=== PATIENT | male | born 1990 | race Caucasian/White ===

== ENCOUNTER 2021-02-14 11:51 | Emergency (ER) | payer OTHER ==
[~2021-02-14] VITALS: Ht 175.3 cm; Wt 88.6 kg
[2021-02-14 11:52] VITALS: BP 131/79
== END 2021-02-14 13:02 | disposition home or self-care (01) ==
LOC: M ED 11:51
DX: R21 Rash and other nonspecific skin eruption (principal)

== ENCOUNTER 2021-06-21 20:22 | Emergency (ER) | payer OTHER ==
[~2021-06-21] VITALS: Ht 172.7 cm; Wt 91.7 kg
--- NOTE | 2021-06-21 21:25 | REPVR ---
PROCEDURE INFORMATION: Exam: CT Head Without Contrast Exam date and time: 06/21/2021 8:32 PM Age: 31 years old Clinical indication: Injury or trauma; Fall; Concussion/head injury; Additional info: Intoxicated/injury TECHNIQUE: Imaging protocol: Computed tomography of the head without contrast. Radiation optimization: All CT scans at this facility use at least one of these dose optimization techniques: automated exposure control; mA and/or kV adjustment per patient size (includes targeted exams where dose is matched to clinical indication); or iterative reconstruction. COMPARISON: No relevant prior studies available. FINDINGS: Brain: There is a very small amount of subdural blood along the tentorium and also along the falx at the vertex. The healy-white differentiation appears preserved. Cerebral ventricles: Normal appearing ventricles. Paranasal sinuses: Clear paranasal sinuses. Mastoid air cells: Clear mastoid air cells. Bones/joints: There is no evidence of fracture. Soft tissues: The patient has soft tissue swelling and a laceration of the scalp on the right. IMPRESSION: 1. Right scalp laceration. 2. Suspect small amount of subdural blood along the tentorium and along the falx at the vertex. Electronically signed by: Haris Gonzalez On 06/21/2021 21:24:58 PM
[2021-06-21] MEDS ORDERED: LIDOCAINE W/EPINEPHRINE 1% 20ML VIAL SC ONE (22:05)
--- NOTE | 2021-06-21 22:08 | REPVR ---
PROCEDURE INFORMATION: Exam: CT Cervical Spine Without Contrast Exam date and time: 06/21/2021 9:40 PM Age: 31 years old Clinical indication: Injury or trauma; Fall; Blunt trauma TECHNIQUE: Imaging protocol: Computed tomography images of the cervical spine without contrast. Radiation optimization: All CT scans at this facility use at least one of these dose optimization techniques: automated exposure control; mA and/or kV adjustment per patient size (includes targeted exams where dose is matched to clinical indication); or iterative reconstruction. COMPARISON: CT Head without contrast 06/21/2021 8:29 PM FINDINGS: Vertebrae: The cervical vertebra and facet joints appear in alignment. There is no evidence of fracture. The dens appears intact in the lateral masses of C1 appear symmetric. Lungs: The apical portions of the lung appear clear. IMPRESSION: No evidence of fracture. Electronically signed by: Haris Gonzalez On 06/21/2021 22:08:25 PM
[2021-06-21 22:16] LABS: BASO % 0.5 % (0.0-1.0); EOS # 0.1 10^3/uL (0.0-0.5); HEMATOCRIT 43.8 % (42.0-52.0); HEMOGLOBIN 14.6 g/dl (13.5-17.5); LYMPH # 1.8 10^3/uL (1.5-5.0); LYMPH % 21.6 % (24.0-44.0); MEAN CORPUSCULAR HEMOGLOBIN 29.9 pg (27.0-33.0); MEAN CORPUSCULAR HGB CONC 33.3 g/dl (32.0-36.5); MEAN CORPUSCULAR VOLUME 89.6 fl (80.0-96.0); MONO # 0.6 10^3/uL (0.0-0.8); MONO % 7.2 % (2.0-8.0); NEUTROPHILS # 5.8 10^3/uL (1.5-8.5); NEUTROPHILS % 69.3 % (36.0-66.0); PLATELET COUNT, AUTOMATED 246 10^3/uL (150-450); RED BLOOD COUNT 4.89 10^6/uL (4.30-6.10); WHITE BLOOD COUNT 8.3 10^3/uL (4.0-10.0)
[2021-06-21 22:29] LABS: INR 0.83; PROTHROMBIN TIME 11.8 SECONDS (12.7-14.5)
[2021-06-21 22:36] VITALS: BP 159/86
[2021-06-21 22:40] LABS: RSV AMPLIFICATION NEGATIVE (NEGATIVE)
[2021-06-21 23:17] LABS: ALBUMIN 3.8 GM/DL (3.2-5.2); ALT/SGPT 31 U/L (12-78); BILIRUBIN,TOTAL 0.7 MG/DL (0.2-1.0); BLOOD UREA NITROGEN 13 MG/DL (7-18); CALCIUM LEVEL 8.7 MG/DL (8.5-10.1); CARBON DIOXIDE LEVEL 26 MEQ/L (21-32); CHLORIDE LEVEL 112 MEQ/L (98-107); CREATININE FOR GFR 0.96 MG/DL (0.70-1.30); ETHYL ALCOHOL (ETHANOL) 0.261 % (0.000-0.010); GLOMERULAR FILTRATION RATE > 60.0 (>60); GLUCOSE, FASTING 113 MG/DL (70-100); POTASSIUM SERUM 4.3 MEQ/L (3.5-5.1); SODIUM LEVEL 144 MEQ/L (136-145); TOTAL PROTEIN 6.9 GM/DL (6.4-8.2)
== END 2021-06-21 22:40 | disposition short-term general hospital (02) ==
LOC: M ED 20:22
DX: S06.5X0A Traumatic subdural hemorrhage without loss of consciousness, initial encounter (principal); S01.81XA Laceration without foreign body of other part of head, initial encounter; W07.XXXA Fall from chair, initial encounter; Y92.099 Unspecified place in other non-institutional residence as the place of occurrence of the external cause; Y93.9 Activity, unspecified; Y99.9 Unspecified external cause status; F10.10 Alcohol abuse, uncomplicated

== ENCOUNTER → 2021-07-19 | Outpatient (CLI) | payer OTHER ==
--- NOTE | 2021-07-19 10:37 | REPVR ---
PROCEDURE INFORMATION: Exam: MR Head Without Contrast Exam date and time: 07/19/2021 8:55 AM Age: 31 years old Clinical indication: Injury or trauma; Bleeding/hemorrhage; Injury date: 1 month ago; Injury details: 07/13 presented with pupillary asymmetry l>r slightly with sluggish reaction and PT states headaches since fall; Prior surgery; Surgery date: <1 month; Patient HX: Follow up CT head [facility]; Additional info: S/P tbi sm subdural hemotoma TECHNIQUE: Imaging protocol: MR of the head without contrast. COMPARISON: CT Head without contrast 06/21/2021 8:29 PM FINDINGS: Brain: 4 mm foci of signal drop on gradient echo images in bilateral inferior frontal lobes without any associated FLAIR signal abnormality. Findings may represent hemosiderin deposition, age indeterminate versus calcium. Small foci of signal drop on gradient echo images in the inferior bilateral frontal lobes. Findings may represent small contusions versus a ball subarachnoid hemorrhage. Additionally there is signal drop on gradient echo images in the. No evidence of restricted diffusion to suggest an acute infarct. No mass, midline shift, or mass effect. Cerebral ventricles: Normal. No ventriculomegaly. Bones/joints: Unremarkable. Paranasal sinuses: Normal as visualized. No acute sinusitis. Mastoid air cells: Normal as visualized. No mastoid effusion. Orbital cavity: Unremarkable. Soft tissues: Unremarkable. IMPRESSION: No FLAIR are T1 signal abnormality to suggest an acute hemorrhage. Previously described subdural hemorrhage on the CT scan is not evident on the MR examination. On gradient echo images there are small foci of signal drop in bilateral inferior frontal lobes without any associated FLAIR signal abnormality may represent hemosiderin deposition, age indeterminate versus calcium. No mass effect or midline shift. Electronically signed by: Steffi Auguste On 07/19/2021 10:36:53 AM
== END ==
LOC: M PLAIMG 08:16
DX: H53.8 Other visual disturbances (principal); Z87.820 Personal history of traumatic brain injury; R51.9 Headache, unspecified